=== PATIENT | female | born 1985 | race Caucasian/White ===

== ENCOUNTER 2020-12-14 16:44 | Emergency (ER) | payer BC, OTHER ==
[~2020-12-14] VITALS: Ht 162.6 cm; Wt 62.1 kg
[~2020-12-14 16:44] MED LIST: ANAPROX DS550 MG PO; BENTYL10 MG PO; BLEPH-105 ML OS; CYCLOBENZAPRINE10 MG PO; NITROFURANTOIN100 MG PO; PROMETHAZINE12.5 M1 PO; TEARS PURE DROP15 ML OS; TYLENOL WITH C1 EACH PO; ZOFRAN ODT4 MG SL
--- OUTSIDE RECORDS SUMMARY | 2020-12-14 16:46 | XMS ---
PreManage Notification: KIRAN ROSADO Security Business Development Events No recent Security Events currently on file CRITERIA MET - [facility] CARE PROVIDERS Negrito Caban DO [facility] Current PHONE: Unknown Tania has no Care Guidelines for this patient. EАнна VISIT COUNT (12 MO.) 1 ANA LAURA Santamaria TOTAL 1 NOTE: Visits indicate total known visits. ED/UCC VISIT TRACKING (12 MO.) 12/14/2020 16:44 ANA LAURA [facility] [place] TYPE: Emergency COMPLAINT: - CHEST PAIN,BACK PAIN,ABD PAIN INPATIENT VISIT TRACKING (12 MO.) No inpatient visits to display in this time frame [email or web address]
[2020-12-14] MEDS ORDERED: MODAFINIL100 MG PO (17:10)
--- NOTE | 2020-12-14 21:40 | EKG ---
[facility] [address] [place], [place] [address] Signed Normal sinus rhythm Normal ECG No previous ECGs available Confirmed by MARY VIDAL DO ([id number]) on 12/14/2020 9:40:49 PM Electronically Signed By: MARY VIDAL DO 12/14/200 PATIENT NAME: KIRAN ROSADO Electrocardiogram DATE OF : 89 PHYSICIAN: MARY VIDAL DO REPORT #: [id number] REPORT IS CONFIDENTIAL AND NOT TO BE RELEASED WITHOUT AUTHORIZATION
== END 2020-12-14 18:37 | disposition home or self-care (01) ==
LOC: ED 16:44
DX: R10.10 Upper abdominal pain, unspecified (principal); Z91.018 Allergy to other foods; Z88.6 Allergy status to analgesic agent; Z88.8 Allergy status to other drugs, medicaments and biological substances; Z79.899 Other long term (current) drug therapy
CPT/HCPCS: 71045; 80053; 81001; 83690; 83735; 84484; 84703; 85025; 93005; 93010; 99285-25

== ENCOUNTER 2022-09-13 11:20 | Observation (INO) | payer BC, OTHER ==
[~2022-09-13] VITALS: Ht 162.6 cm; Wt 63.8 kg
--- OUTSIDE RECORDS SUMMARY | ~2022-09-13 | XMS | Continuity of Care Document ---
Demographics + + + | Address | [address] | | | [place] [address] | + + + | Preferred Language | Unknown | + + + | Marital Status | Never | + + + | Hinduism Affiliation | Unknown | + + + | Race | White | + + + | Ethnic Group | Unknown | + + + Author + + + | Author | [facility] | + + + | Organization | [facility] | + + + | Address | [address] | | | [place] [address] | + + + | Phone | | + + + Care Team Providers + + + + | Care Vp Ancillary Name | Role | Phone | + + + + Unavailable | Unavailable | + + + + Unavailable | Unavailable | + + + + Allergies and Intolerances + + + + + | date | description | facility | type | + + + + + | (no date) | Compoz | [facility] | (unknown) | | | | [facility] | | + + + + + | (no date) | [facility]-D[facility] Allergy | [facility] | (unknown) | | | | [facility] | | + + + + + | (no date) | Benadryl 25 MG | [facility] | (unknown) | | | Oral Tablet | [facility] | | + + + + + | (no date) | diphenhydramine | [facility] | (unknown) | | | HCl | | | + + + + + | (no date) | aspirin | [facility] | (unknown) | + + + + + | (no date) | coconut oil | [facility] | (unknown) | + + + + + Encounters No information. Functional Status No information. Immunizations No information. Medications + + + + | date | description | facility | + + + + | 2018-10-22 00:00 | Fluticasone Propionate | [facility] | | | 50MCG/ACT Nasal Suspension | | + + + + | 2020-04-18 00:00 | triamcinolone acetonide 1 | [facility] | | | MG/ML Topical Cream | | + + + + | 2021-03-20 00:00 | triamcinolone acetonide 1 | [facility] | | | MG/ML Topical Cream | | + + + + | 2020-02-14 00:00 | mupirocin 0.02 MG/MG | [facility] | | | Topical Ointment | | + + + + | 2021-12-06 00:00 | methylphenidate | [facility] | | | hydrochloride 5 MG Oral | | | | Tablet | | + + + + | 2019-01-21 00:00 | menthol 0.037 MG/MG | [facility] | | | Topical Gel [Max-Freeze] | | + + + + | 2021-12-06 00:00 | Methylphenidate HCl 5 MG | [facility] | | | Oral Tablet | | + + + + | 2019-10-04 00:00 | meloxicam 15 MG Oral | [facility] | | | Tablet | | + + + + | 2020-04-18 00:00 | meloxicam 15 MG Oral | [facility] | | | Tablet | | + + + + | 2019-01-21 00:00 | Zims Max-Freeze 3.7% | [facility] | | | External Gel | | + + + + | 2022-08-07 00:00 | predniSONE 20 MG Oral | [facility] | | | Tablet | | + + + + | 2018-10-22 00:00 | fluticasone propionate | [facility] | | | 0.05 MG/ACTUAT Metered Dose | | | | Nasal [place] | | + + + + | 2019-10-04 00:00 | acetaminophen 325 MG Oral | [facility] | | | Tablet [Tylenol] | | + + + + | 2020-04-18 00:00 | Triamcinolone Acetonide | [facility] | | | 0.1% External Cream | | + + + + | 2021-03-20 00:00 | Triamcinolone Acetonide | [facility] | | | 0.1% External Cream | | + + + + | 2019-10-04 00:00 | Tylenol 325 MG Oral Tablet | [facility] | | | | | + + + + | 2021-03-20 00:00 | Bactrim DS 800-160 MG Oral | [facility] | | | Tablet | | + + + + | 2020-11-07 00:00 | modafinil 100 MG Oral | [facility] | | | Tablet | | + + + + | 2021-11-14 00:00 | modafinil 100 MG Oral | [facility] | | | Tablet | | + + + + | 2020-02-14 00:00 | Mupirocin 2% External | [facility] | | | Ointment | | + + + + | 2021-01-16 00:00 | azithromycin 250 MG Oral | [facility] | | | Tablet | | + + + + | 2021-12-04 00:00 | azithromycin 250 MG Oral | [facility] | | | Tablet | | + + + + | 2022-03-07 00:00 | Sucralfate 1 GM Oral | [facility] | | | Tablet | | + + + + | 2020-06-04 00:00 | ferrous sulfate 325 MG | [facility] | | | Oral Tablet | | + + + + | 2022-08-07 00:00 | prednisone 20 MG Oral | [facility] | | | Tablet | | + + + + | 2022-03-07 00:00 | pantoprazole 40 MG Delayed | [facility] | | | Release Oral Tablet | | + + + + | 2022-03-07 00:00 | sucralfate 1000 MG Oral | [facility] | | | Tablet | | + + + + | 2019-10-04 00:00 | Meloxicam 15 MG Oral | [facility] | | | Tablet | | + + + + | 2020-04-18 00:00 | Meloxicam 15 MG Oral | [facility] | | | Tablet | | + + + + | 2021-01-16 00:00 | Azithromycin 250 MG Oral | [facility] | | | Tablet | | + + + + | 2021-12-04 00:00 | Azithromycin 250 MG Oral | [facility] | | | Tablet | | + + + + | 2022-01-16 00:00 | amoxicillin 875 MG / | [facility] | | | clavulanate 125 MG Oral | | | | Tablet | | + + + + | 2022-08-07 00:00 | amoxicillin 875 MG / | [facility] | | | clavulanate 125 MG Oral | | | | Tablet | | + + + + | 2017-01-12 00:00 | Zofran ODT 4MG Oral Tablet | [facility] | | | Disintegrating | | + + + + | 2020-11-07 00:00 | Modafinil 100 MG Oral | [facility] | | | Tablet | | + + + + | 2021-11-14 00:00 | Modafinil 100 MG Oral | [facility] | | | Tablet | | + + + + | 2020-05-31 00:00 | duloxetine 30 MG Delayed | [facility] | | | Release Oral Capsule | | | | [Cymbalta] | | + + + + | 2022-03-07 00:00 | Pantoprazole Sodium 40 MG | [facility] | | | Oral Tablet Delayed Release | | | | | | + + + + | 2019-01-05 00:00 | Jackson 5-325 MG Oral Tablet | [facility] | | | | | + + + + | 2022-01-16 00:00 | Amoxicillin-Pot | [facility] | | | Clavulanate 875-125 MG Oral | | | | Tablet | | + + + + | 2022-08-07 00:00 | Amoxicillin-Pot | [facility] | | | Clavulanate 875-125 MG Oral | | | | Tablet | | + + + + | 2022-03-07 00:00 | HYDROcodone-Acetaminophen | [facility] | | | 5-325 MG Oral Tablet | | + + + + | 2019-01-05 00:00 | Cyclobenzaprine HCl 5 MG | [facility] | | | Oral Tablet | | + + + + | 2019-01-05 00:00 | cyclobenzaprine | [facility] | | | hydrochloride 5 MG Oral | | | | Tablet | | + + + + | 2020-06-04 00:00 | Ferrous Sulfate 325 (65 | [facility] | | | Fe) MG Oral Tablet | | + + + + | 2021-03-20 00:00 | sulfamethoxazole 800 MG / | [facility] | | | trimethoprim 160 MG Oral | | | | Tablet [Bactrim] | | + + + + | 2022-03-07 00:00 | acetaminophen 325 MG / | [facility] | | | hydrocodone bitartrate 5 MG | | | | Oral Tablet | | + + + + | 2019-01-05 00:00 | acetaminophen 325 MG / | [facility] | | | hydrocodone bitartrate 5 MG | | | | Oral Tablet [Jackson] | | + + + + | 2017-01-12 00:00 | ondansetron 4 MG | [facility] | | | Disintegrating Oral Tablet | | | | [Zofran] | | + + + + | 2020-05-31 00:00 | Cymbalta 30 MG Oral | [facility] | | | Capsule Delayed Release | | | | Particles | | + + + + Problems No information. Procedures + + + + | date | description | facility | + + + + | 2022-01-16 00:00 | Controlling Blood | [facility] | | | Pressure; Most recent | | | | Systolic <130mm Hg | | + + + + | 2022-01-16 00:00 | Controlling BP; Most | [facility] | | | recent Diastolic BP < 80mm | | | | Hg | | + + + + Results/Labs +--------+--------+ + +---------+--------+ + | test | date | author | facility | value | unit | | | | | | | | | interpreta | | | | | | | | tion | +--------+--------+ + +---------+--------+ + + + | Result panel 1 | + + + + + + +---------+ + + | (unknown) | (no date) | (unknown) | [facility] | (no | (units | (unknown) | | | | | [facility] | value) | unknown) | | | | | | [facility] | | | | | | [facility] | | | | + + + + +---------+ + + + + | Result panel 2 | + + + + + + +---------+ + + | (unknown) | (no date) | (unknown) | [facility] | (no | (units | (unknown) | | | | | [facility] | value) | unknown) | | | | | | [facility] | | | | | | | | [facility] | | | | + + + + +---------+ + + + + | Result panel 3 | + + + + + + +---------+ + + | (unknown) | (no date) | (unknown) | [facility] | (no | (units | (unknown) | | | | | [facility] | value) | unknown) | | | | | | [facility] | | | | | | | | [facility] | | | | + + + + +---------+ + + + + | Result panel 4 | + + + + + + +---------+ + + | (unknown) | (no date) | (unknown) | [facility] | (no | (units | (unknown) | | | | | [facility] | value) | unknown) | | | | | | [facility] | | | | | | | | [facility] | | | | + + + + +---------+ + + + + | Result panel 5 | + + + + + + +---------+ + + | (unknown) | (no date) | (unknown) | [facility] | (no | (units | (unknown) | | | | | [facility] | value) | unknown) | | | | | | [facility] | | | | | | | | [facility] | | | | + + + + +---------+ + + + + | Result panel 6 | + + + + + + +---------+ + + | (unknown) | (no date) | (unknown) | [facility] | (no | (units | (unknown) | | | | | [facility] | value) | unknown) | | | | | | [facility] | | | | | | | | [facility] | | | | + + + + +---------+ + + + + | Result panel 7 | + + + + + + +---------+ + + | (unknown) | (no date) | (unknown) | [facility] | (no | (units | (unknown) | | | | | [facility] | value) | unknown) | | | | | | [facility] | | | | | | | | [facility] | | | | + + + + +---------+ + + + + | Result panel 8 | + + + + + + +---------+ + + | (unknown) | (no date) | (unknown) | [facility] | (no | (units | (unknown) | | | | | [facility] | value) | unknown) | | | | | | [facility] | | | | | | | | [facility] | | | | + + + + +---------+ + + + + | Result panel 9 | + + + + + + +---------+ + + | (unknown) | (no date) | (unknown) | [facility] | (no | (units | (unknown) | | | | | [facility] | value) | unknown) | | | | | | [facility] | | | | | | | | [facility] | | | | + + + + +---------+ + + + + | Result panel 10 | + + + + + + +---------+ + + | (unknown) | (no date) | (unknown) | [facility] | (no | (units | (unknown) | | | | | [facility] | value) | unknown) | | | | | | [facility] | | | | | | | | [facility] | | | | + + + + +---------+ + + + + | Result panel 11 | + + + + + + +---------+ + + | (unknown) | (no date) | (unknown) | [facility] | (no | (units | (unknown) | | | | | [facility] | value) | unknown) | | | | | | [facility], | | | | | | | | [facility] | | | | + + + + +---------+ + + + + | Result panel 12 | + + + + + + +---------+ + + | (unknown) | (no date) | (unknown) | [facility] | (no | (units | (unknown) | | | | | [facility] | value) | unknown) | | | | | | [facility], | | | | | | | | [facility] | | | | + + + + +---------+ + + + + | Result panel 13 | + + + + + + +---------+ + + | (unknown) | (no date) | (unknown) | [facility] | (no | (units | (unknown) | | | | | [facility] | value) | unknown) | | | | | | [facility], | | | | | | | | [facility] | | | | + + + + +---------+ + + + + | Result panel 14 | + + + + + + +---------+ + + | (unknown) | (no date) | (unknown) | [facility] | (no | (units | (unknown) | | | | | [facility] | value) | unknown) | | | | | | [facility], | | | | | | | | [facility] | | | | + + + + +---------+ + + + + | Result panel 15 | + + + + + + +---------+ + + | (unknown) | (no date) | (unknown) | [facility] | (no | (units | (unknown) | | | | | [facility] | value) | unknown) | | | | | | [facility], | | | | | | | | [facility] | | | | + + + + +---------+ + + + + | Result panel 16 | + + + + + + +---------+ + + | (unknown) | (no date) | (unknown) | [facility] | (no | (units | (unknown) | | | | | [facility] | value) | unknown) | | | | | | [facility], | | | | | | | | [facility] | | | | + + + + +---------+ + + + + | Result panel 17 | + + + + + + +---------+ + + | (unknown) | (no date) | (unknown) | [facility] | (no | (units | (unknown) | | | | | [facility] | value) | unknown) | | | | | | [facility], | | | | | | | | [facility] | | | | + + + + +---------+ + + + + | Result panel 18 | + + + + + + +---------+ + + | (unknown) | (no date) | (unknown) | [facility] | (no | (units | (unknown) | | | | | [facility] | value) | unknown) | | | | | | [facility], | | | | | | | | [facility] | | | | + + + + +---------+ + + + + | Result panel 19 | + + + + + + +---------+ + + | (unknown) | (no date) | (unknown) | [facility] | (no | (units | (unknown) | | | | | [facility] | value) | unknown) | | | | | | [facility], | | | | | | | | [facility] | | | | + + + + +---------+ + + + + | Result panel 20 | + + + + + + +---------+ + + | (unknown) | (no date) | (unknown) | [facility] | (no | (units | (unknown) | | | | | [facility] | value) | unknown) | | | | | | [facility], | | | | | | | | [facility] | | | | + + + + +---------+ + + + + | Result panel 21 | + + + + + + +---------+ + + | (unknown) | (no date) | (unknown) | [facility] | (no | (units | (unknown) | | | | | [facility] | value) | unknown) | | | | | | [facility], | | | | | | | | [facility] | | | | + + + + +---------+ + + + + | Result panel 22 | + + + + + + +---------+ + + | (unknown) | (no date) | (unknown) | [facility] | (no | (units | (unknown) | | | | | [facility] | value) | unknown) | | | | | | [facility], | | | | | | | | [facility] | | | | + + + + +---------+ + + + + | Result panel 23 | + + + + + + +---------+ + + | (unknown) | (no date) | (unknown) | [facility] | (no | (units | (unknown) | | | | | [facility] | value) | unknown) | | | | | | [facility], | | | | | | | | [facility] | | | | + + + + +---------+ + + + + | Result panel 24 | + + + + + + +---------+ + + | (unknown) | (no date) | (unknown) | [facility] | (no | (units | (unknown) | | | | | [facility] | value) | unknown) | | | | | | [facility], | | | | | | | | [facility] | | | | + + + + +---------+ + + + + | Result panel 25 | + + + + + + +---------+ + + | (unknown) | (no date) | (unknown) | [facility] | (no | (units | (unknown) | | | | | [facility] | value) | unknown) | | | | | | [facility], | | | | | | | | [facility] | | | | + + + + +---------+ + + + + | Result panel 26 | + + + + + + +---------+ + + | (unknown) | (no date) | (unknown) | [facility] | (no | (units | (unknown) | | | | | [facility] | value) | unknown) | | | | | | [facility], | | | | | | | | [facility] | | | | + + + + +---------+ + + + + | Result panel 27 | + + + + + + +---------+ + + | (unknown) | (no date) | (unknown) | [facility] | (no | (units | (unknown) | | | | | [facility] | value) | unknown) | | | | | | [facility], | | | | | | | | [facility] | | | | + + + + +---------+ + + + + | Result panel 28 | + + + + + + +---------+ + + | (unknown) | (no date) | (unknown) | [facility] | (no | (units | (unknown) | | | | | [facility] | value) | unknown) | | | | | | [facility], | | | | | | | | [facility] | | | | + + + + +---------+ + + + + | Result panel 29 | + + + + + + +---------+ + + | (unknown) | (no date) | (unknown) | [facility] | (no | (units | (unknown) | | | | | [facility] | value) | unknown) | | | | | | [facility], | | | | | | | | [facility] | | | | + + + + +---------+ + + + + | Result panel 30 | + + + + + + +---------+ + + | (unknown) | (no date) | (unknown) | [facility] | (no | (units | (unknown) | | | | | [facility] | value) | unknown) | | | | | | [facility], | | | | | | | | [facility] | | | | + + + + +---------+ + + + + | Result panel 31 | + + + + + + +---------+ + + | (unknown) | (no date) | (unknown) | [facility] | (no | (units | (unknown) | | | | | [facility] | value) | unknown) | | | | | | [facility], | | | | | | | | [facility] | | | | + + + + +---------+ + + + + | Result panel 32 | + + + + + + +---------+ + + | (unknown) | (no date) | (unknown) | [facility] | (no | (units | (unknown) | | | | | [facility] | value) | unknown) | | | | | | [facility], | | | | | | | | [facility] | | | | + + + + +---------+ + + + + | Result panel 33 | + + + + + + +---------+ + + | (unknown) | (no date) | (unknown) | [facility] | (no | (units | (unknown) | | | | | [facility] | value) | unknown) | | | | | | [facility], | | | | | | | | [facility] | | | | + + + + +---------+ + + + + | Result panel 34 | + + + + + + +---------+ + + | (unknown) | (no date) | (unknown) | [facility] | (no | (units | (unknown) | | | | | [facility] | value) | unknown) | | | | | | [facility], | | | | | | | | [facility] | | | | + + + + +---------+ + + + + | Result panel 35 | + + + + + + +---------+ + + | (unknown) | (no date) | (unknown) | [facility] | (no | (units | (unknown) | | | | | [facility] | value) | unknown) | | | | | | [facility], | | | | | | | | [facility] | | | | + + + + +---------+ + + + + | Result panel 36 | + + + + + + +---------+ + + | (unknown) | (no date) | (unknown) | [facility] | (no | (units | (unknown) | | | | | [facility] | value) | unknown) | | | | | | [facility], | | | | | | | | [facility] | | | | + + + + +---------+ + + + + | Result panel 37 | + + + + + + +---------+ + + | (unknown) | (no date) | (unknown) | [facility] | (no | (units | (unknown) | | | | | [facility] | value) | unknown) | | | | | | [facility], | | | | | | | | [facility] | | | | + + + + +---------+ + + + + | Result panel 38 | + + + + + + +---------+ + + | (unknown) | (no date) | (unknown) | [facility] | (no | (units | (unknown) | | | | | [facility] | value) | unknown) | | | | | | [facility], | | | | | | | | [facility] | | | | + + + + +---------+ + + + + | Result panel 39 | + + + + + + +---------+ + + | (unknown) | (no date) | (unknown) | [facility] | (no | (units | (unknown) | | | | | [facility] | value) | unknown) | | | | | | [facility], | | | | | | | | [facility] | | | | + + + + +---------+ + + + + | Result panel 40 | + + + + + + +---------+ + + | (unknown) | (no date) | (unknown) | [facility] | (no | (units | (unknown) | | | | | [facility] | value) | unknown) | | | | | | [facility], | | | | | | | | [facility] | | | | + + + + +---------+ + + + + | Result panel 41 | + + + + + + +---------+ + + | (unknown) | (no date) | (unknown) | [facility] | (no | (units | (unknown) | | | | | [facility] | value) | unknown) | | | | | | [facility], | | | | | | | | [facility] | | | | + + + + +---------+ + + + + | Result panel 42 | + + + + + + +---------+ + + | (unknown) | (no date) | (unknown) | [facility] | (no | (units | (unknown) | | | | | [facility] | value) | unknown) | | | | | | [facility], | | | | | | | | [facility] | | | | + + + + +---------+ + + + + | Result panel 43 | + + + + + + +---------+ + + | (unknown) | (no date) | (unknown) | [facility] | (no | (units | (unknown) | | | | | [facility] | value) | unknown) | | | | | | [facility], | | | | | | | | [facility] | | | | + + + + +---------+ + + + + | Result panel 44 | + + + + + + +---------+ + + | (unknown) | (no date) | (unknown) | [facility] | (no | (units | (unknown) | | | | | [facility] | value) | unknown) | | | | | | [facility], | | | | | | | | [facility] | | | | + + + + +---------+ + + + + | Result panel 45 | + + + + + + +---------+ + + | (unknown) | (no date) | (unknown) | [facility] | (no | (units | (unknown) | | | | | [facility] | value) | unknown) | | | | | | [facility], | | | | | | | | [facility] | | | | + + + + +---------+ + + + + | Result panel 46 | + + + + + + +---------+ + + | (unknown) | (no date) | (unknown) | [facility] | (no | (units | (unknown) | | | | | [facility] | value) | unknown) | | | | | | [facility], | | | | | | | | [facility] | | | | + + + + +---------+ + + + + | Result panel 47 | + + + + + + +---------+ + + | (unknown) | (no date) | (unknown) | [facility] | (no | (units | (unknown) | | | | | [facility] | value) | unknown) | | | | | | [facility], | | | | | | | | [facility] | | | | + + + + +---------+ + + + + | Result panel 48 | + + + + + + +---------+ + + | (unknown) | (no date) | (unknown) | [facility] | (no | (units | (unknown) | | | | | [facility] | value) | unknown) | | | | | | [facility], | | | | | | | | [facility] | | | | + + + + +---------+ + + + + | Result panel 49 | + + + + + + +---------+ + + | (unknown) | (no date) | (unknown) | [facility] | (no | (units | (unknown) | | | | | [facility] | value) | unknown) | | | | | | [facility], | | | | | | | | [facility] | | | | + + + + +---------+ + + + + | Result panel 50 | + + + + + + +---------+ + + | (unknown) | (no date) | (unknown) | [facility] | (no | (units | (unknown) | | | | | [facility] | value) | unknown) | | | | | | [facility], | | | | | | | | [facility] | | | | + + + + +---------+ + + + + | Result panel 51 | + + + + + + +---------+ + + | (unknown) | (no date) | (unknown) | [facility] | (no | (units | (unknown) | | | | | [facility] | value) | unknown) | | | | | | [facility], | | | | | | | | [facility] | | | | + + + + +---------+ + + + + | Result panel 52 | + + + + + + +---------+ + + | (unknown) | (no date) | (unknown) | [facility] | (no | (units | (unknown) | | | | | [facility] | value) | unknown) | | | | | | GROUP, | | | | | | | | [facility] | | | | + + + + +---------+ + + + + | Result panel 53 | + + + + + + +---------+ + + | (unknown) | (no date) | (unknown) | [facility] | (no | (units | (unknown) | | | | | [facility] | value) | unknown) | | | | | | GROUP, | | | | | | | | [facility] | | | | + + + + +---------+ + + + + | Result panel 54 | + + + + + + +---------+ + + | (unknown) | (no date) | (unknown) | [facility] | (no | (units | (unknown) | | | | | [facility] | value) | unknown) | | | | | | GROUP, | | | | | | | | [facility] | | | | + + + + +---------+ + + + + | Result panel 55 | + + + + + + +---------+ + + | (unknown) | (no date) | (unknown) | [facility] | (no | (units | (unknown) | | | | | [facility] | value) | unknown) | | | | | | GROUP, | | | | | | | | [facility] | | | | + + + + +---------+ + + + + | Result panel 56 | + + + + + + +---------+ + + | (unknown) | (no date) | (unknown) | [facility] | (no | (units | (unknown) | | | | | [facility] | value) | unknown) | | | | | | GROUP, | | | | | | | | [facility] | | | | + + + + +---------+ + + + + | Result panel 57 | + + + + + + +---------+ + + | (unknown) | (no date) | (unknown) | [facility] | (no | (units | (unknown) | | | | | MEDICAL | value) | unknown) | | | | | | [facility], | | | | | | | | [facility] | | | | + + + + +---------+ + + + + | Result panel 58 | + + + + + + +---------+ + + | (unknown) | (no date) | (unknown) | [facility] | (no | (units | (unknown) | | | | | [facility] | value) | unknown) | | | | | | [facility], | | | | | | | | [facility] | | | | + + + + +---------+ + + + + | Result panel 59 | + + + + + + +---------+ + + | (unknown) | (no date) | (unknown) | [facility] | (no | (units | (unknown) | | | | | [facility] | value) | unknown) | | | | | | [facility], | | | | | | | | [facility] | | | | + + + + +---------+ + + + + | Result panel 60 | + + + + + + +---------+ + + | (unknown) | (no date) | (unknown) | [facility] | (no | (units | (unknown) | | | | | [facility] | value) | unknown) | | | | | | [facility], | | | | | | | | [facility] | | | | + + + + +---------+ + + + + | Result panel 61 | + + + + + + +---------+ + + | (unknown) | (no date) | (unknown) | [facility] | (no | (units | (unknown) | | | | | [facility] | value) | unknown) | | | | | | [facility], | | | | | | | | [facility] | | | | + + + + +---------+ + + + + | Result panel 62 | + + + + + + +---------+ + + | (unknown) | (no date) | (unknown) | [facility] | (no | (units | (unknown) | | | | | [facility] | value) | unknown) | | | | | | [facility], | | | | | | | | [facility] | | | | + + + + +---------+ + + + + | Result panel 63 | + + + + + + +---------+ + + | (unknown) | (no date) | (unknown) | [facility] | (no | (units | (unknown) | | | | | [facility] | value) | unknown) | | | | | | [facility], | | | | | | | | [facility] | | | | + + + + +---------+ + + + + | Result panel 64 | + + + + + + +---------+ + + | (unknown) | (no date) | (unknown) | [facility] | (no | (units | (unknown) | | | | | [facility] | value) | unknown) | | | | | | [facility], | | | | | | | | [facility] | | | | + + + + +---------+ + + + + | Result panel 65 | + + + + + + +---------+ + + | (unknown) | (no date) | (unknown) | [facility] | (no | (units | (unknown) | | | | | [facility] | value) | unknown) | | | | | | [facility], | | | | | | | | [facility] | | | | + + + + +---------+ + + + + | Result panel 66 | + + + + + + +---------+ + + | (unknown) | (no date) | (unknown) | [facility] | (no | (units | (unknown) | | | | | [facility] | value) | unknown) | | | | | | [facility], | | | | | | | | [facility] | | | | + + + + +---------+ + + + + | Result panel 67 | + + + + + + +---------+ + + | (unknown) | (no date) | (unknown) | [facility] | (no | (units | (unknown) | | | | | [facility] | value) | unknown) | | | | | | [facility], | | | | | | | | [facility] | | | | + + + + +---------+ + + + + | Result panel 68 | + + + + + + +---------+ + + | (unknown) | (no date) | (unknown) | [facility] | (no | (units | (unknown) | | | | | [facility] | value) | unknown) | | | | | | [facility], | | | | | | | | [facility] | | | | + + + + +---------+ + + + + | Result panel 69 | + + + + + + +---------+ + + | (unknown) | (no date) | (unknown) | [facility] | (no | (units | (unknown) | | | | | [facility] | value) | unknown) | | | | | | [facility], | | | | | | | | [facility] | | | | + + + + +---------+ + + + + | Result panel 70 | + + + + + + +---------+ + + | (unknown) | (no date) | (unknown) | [facility] | (no | (units | (unknown) | | | | | MEDICAL | value) | unknown) | | | | | | [facility], | | | | | | | | [facility] | | | | + + + + +---------+ + + + + | Result panel 71 | + + + + + + +---------+ + + | (unknown) | (no date) | (unknown) | [facility] | (no | (units | (unknown) | | | | | MEDICAL | value) | unknown) | | | | | | [facility], | | | | | | | | [facility] | | | | + + + + +---------+ + + + + | Result panel 72 | + + + + + + +---------+ + + | (unknown) | (no date) | (unknown) | [facility] | (no | (units | (unknown) | | | | | MEDICAL | value) | unknown) | | | | | | [facility], | | | | | | | | [facility] | | | | + + + + +---------+ + + + + | Result panel 73 | + + + + + + +---------+ + + | (unknown) | (no date) | (unknown) | [facility] | (no | (units | (unknown) | | | | | MEDICAL | value) | unknown) | | | | | | [facility], | | | | | | | | [facility] | | | | + + + + +---------+ + + + + | Result panel 74 | + + + + + + +---------+ + + | (unknown) | (no date) | (unknown) | [facility] | (no | (units | (unknown) | | | | | MEDICAL | value) | unknown) | | | | | | [facility] | | | | | | | | [facility] | | | | + + + + +---------+ + + + + | Result panel 75 | + + + + + + +---------+ + + | (unknown) | (no date) | (unknown) | [facility] | (no | (units | (unknown) | | | | | MEDICAL | value) | unknown) | | | | | | [facility], | | | | | | | | [facility] | | | | + + + + +---------+ + + + + | Result panel 76 | + + + + + + +---------+ + + | (unknown) | (no date) | (unknown) | [facility] | (no | (units | (unknown) | | | | | MEDICAL | value) | unknown) | | | | | | [facility], | | | | | | | | [facility] | | | | + + + + +---------+ + + + + | Result panel 77 | + + + + + + +---------+ + + | (unknown) | (no date) | (unknown) | [facility] | (no | (units | (unknown) | | | | | MEDICAL | value) | unknown) | | | | | | [facility], | | | | | | | | [facility] | | | | + + + + +---------+ + + + + | Result panel 78 | + + + + + + +---------+ + + | (unknown) | (no date) | (unknown) | [facility] | (no | (units | (unknown) | | | | | [facility] | value) | unknown) | | | | | | [facility], | | | | | | | | [facility] | | | | + + + + +---------+ + + + + | Result panel 79 | + + + + + + +---------+ + + | (unknown) | (no date) | (unknown) | [facility] | (no | (units | (unknown) | | | | | [facility] | value) | unknown) | | | | | | [facility], | | | | | | | | [facility] | | | | + + + + +---------+ + + + + | Result panel 80 | + + + + + + +---------+ + + | (unknown) | (no date) | (unknown) | [facility] | (no | (units | (unknown) | | | | | MEDICAL | value) | unknown) | | | | | | [facility], | | | | | | | | [facility] | | | | + + + + +---------+ + + + + | Result panel 81 | + + + + + + +---------+ + + | (unknown) | (no date) | (unknown) | [facility] | (no | (units | (unknown) | | | | | [facility] | value) | unknown) | | | | | | [facility], | | | | | | | | [facility] | | | | + + + + +---------+ + + + + | Result panel 82 | + + + + + + +---------+ + + | (unknown) | (no date) | (unknown) | [facility] | (no | (units | (unknown) | | | | | [facility] | value) | unknown) | | | | | | [facility], | | | | | | | | [facility] | | | | + + + + +---------+ + + + + | Result panel 83 | + + + + + + +---------+ + + | (unknown) | (no date) | (unknown) | [facility] | (no | (units | (unknown) | | | | | MEDICAL | value) | unknown) | | | | | | [facility], | | | | | | | | [facility] | | | | + + + + +---------+ + + + + | Result panel 84 | + + + + + + +---------+ + + | (unknown) | (no date) | (unknown) | [facility] | (no | (units | (unknown) | | | | | [facility]ICAL | value) | unknown) | | | | | | [facility], | | | | | | | | [facility] | | | | + + + + +---------+ + + + + | Result panel 85 | + + + + + + +---------+ + + | (unknown) | (no date) | (unknown) | [facility] | (no | (units | (unknown) | | | | | [facility] | value) | unknown) | | | | | | [facility], | | | | | | | | [facility] | | | | + + + + +---------+ + + + + | Result panel 86 | + + + + + + +---------+ + + | (unknown) | (no date) | (unknown) | [facility] | (no | (units | (unknown) | | | | | [facility] | value) | unknown) | | | | | | [facility], | | | | | | | | [facility] | | | | + + + + +---------+ + + + + | Result panel 87 | + + + + + + +---------+ + + | (unknown) | (no date) | (unknown) | [facility] | (no | (units | (unknown) | | | | | [facility] | value) | unknown) | | | | | | [facility], | | | | | | | | [facility] | | | | + + + + +---------+ + + + + | Result panel 88 | + + + + + + +---------+ + + | (unknown) | (no date) | (unknown) | [facility] | (no | (units | (unknown) | | | | | [facility] | value) | unknown) | | | | | | [facility], | | | | | | | | [facility] | | | | + + + + +---------+ + + + + | Result panel 89 | + + + + + + +---------+ + + | (unknown) | (no date) | (unknown) | [facility] | (no | (units | (unknown) | | | | | [facility] | value) | unknown) | | | | | | [facility], | | | | | | | | [facility] | | | | + + + + +---------+ + + + + | Result panel 90 | + + + + + + +---------+ + + | (unknown) | (no date) | (unknown) | [facility] | (no | (units | (unknown) | | | | | [facility] | value) | unknown) | | | | | | [facility], | | | | | | | | [facility] | | | | + + + + +---------+ + + + + | Result panel 91 | + + + + + + +---------+ + + | (unknown) | (no date) | (unknown) | [facility] | (no | (units | (unknown) | | | | | [facility] | value) | unknown) | | | | | | [facility], | | | | | | | | [facility] | | | | + + + + +---------+ + + + + | Result panel 92 | + + + + + + +---------+ + + | (unknown) | (no date) | (unknown) | [facility] | (no | (units | (unknown) | | | | | [facility] | value) | unknown) | | | | | | [facility], | | | | | | | | [facility] | | | | + + + + +---------+ + + + + | Result panel 93 | + + + + + + +---------+ + + | (unknown) | (no date) | (unknown) | [facility] | (no | (units | (unknown) | | | | | [facility] | value) | unknown) | | | | | | [facility], | | | | | | | | [facility] | | | | + + + + +---------+ + + + + | Result panel 94 | + + + + + + +---------+ + + | (unknown) | (no date) | (unknown) | [facility] | (no | (units | (unknown) | | | | | [facility] | value) | unknown) | | | | | | [facility], | | | | | | | | [facility] | | | | + + + + +---------+ + + + + | Result panel 95 | + + + + + + +---------+ + + | (unknown) | (no date) | (unknown) | [facility] | (no | (units | (unknown) | | | | | [facility] | value) | unknown) | | | | | | [facility], | | | | | | | | [facility] | | | | + + + + +---------+ + + + + | Result panel 96 | + + + + + + +---------+ + + | (unknown) | (no date) | (unknown) | [facility] | (no | (units | (unknown) | | | | | [facility] | value) | unknown) | | | | | | [facility], | | | | | | | | [facility] | | | | + + + + +---------+ + + + + | Result panel 97 | + + + + + + +---------+ + + | (unknown) | (no date) | (unknown) | [facility] | (no | (units | (unknown) | | | | | MED[facility] | value) | unknown) | | | | | | [facility], | | | | | | | | [facility] | | | | + + + + +---------+ + + + + | Result panel 98 | + + + + + + +---------+ + + | (unknown) | (no date) | (unknown) | [facility] | (no | (units | (unknown) | | | | | [facility] | value) | unknown) | | | | | | [facility] | | | | | | | | [facility] | | | | + + + + +---------+ + + Social History + + + + | date | description | facility | + + + + | 2016-12-04 00:00 | Never smoked tobacco | [facility] | | | (finding) | | + + + + Vital Signs + + +---------+ + | date | measurement | value | units | + + +---------+ + | 2019-10-04 00:00 | BMI | 20.6 | kg/m2 | + + +---------+ + | 2019-10-04 00:00 | BP_diastolic | 66 | mmHg | + + +---------+ + | 2019-10-04 00:00 | BP_systolic | 136 | mmHg | + + +---------+ + | 2019-10-04 00:00 | BSA | 1.61 | m2 | + + +---------+ + | 2019-10-04 00:00 | heart_rate | 1|1| | completed | + + +---------+ + | 2019-10-04 00:00 | heart_rate | 80 | /min | + + +---------+ + | 2019-10-04 00:00 | height_metric | 165.1 | cm | + + +---------+ + | 2019-10-04 00:00 | height_standard | 65 | in | + + +---------+ + | 2019-10-04 00:00 | respiration_rate | 16 | /min | + + +---------+ + | 2019-10-04 00:00 | weight_metric | 56.25 | kg | + + +---------+ + | 2019-10-04 00:00 | weight_standard | 124 | lb | + + +---------+ + | 2020-01-04 00:00 | BMI | 20.6 | kg/m2 | + + +---------+ + | 2020-01-04 00:00 | BP_diastolic | 58 | mmHg | + + +---------+ + | 2020-01-04 00:00 | BP_systolic | 106 | mmHg | + + +---------+ + | 2020-01-04 00:00 | BSA | 1.61 | m2 | + + +---------+ + | 2020-01-04 00:00 | heart_rate | 1|1| | completed | + + +---------+ + | 2020-01-04 00:00 | heart_rate | 72 | /min | + + +---------+ + | 2020-01-04 00:00 | height_metric | 165.1 | cm | + + +---------+ + | 2020-01-04 00:00 | height_standard | 65 | in | + + +---------+ + | 2020-01-04 00:00 | weight_metric | 56.06 | kg | + + +---------+ + | 2020-01-04 00:00 | weight_standard | 123.6 | lb | + + +---------+ + | 2020-04-18 00:00 | BMI | 20.6 | kg/m2 | + + +---------+ + | 2020-04-18 00:00 | BP_diastolic | 58 | mmHg | + + +---------+ + | 2020-04-18 00:00 | BP_systolic | 106 | mmHg | + + +---------+ + | 2020-04-18 00:00 | BSA | 1.61 | m2 | + + +---------+ + | 2020-04-18 00:00 | heart_rate | 1|1| | completed | + + +---------+ + | 2020-04-18 00:00 | heart_rate | 64 | /min | + + +---------+ + | 2020-04-18 00:00 | height_metric | 165.1 | cm | + + +---------+ + | 2020-04-18 00:00 | height_standard | 65 | in | + + +---------+ + | 2020-04-18 00:00 | respiration_rate | 16 | /min | + + +---------+ + | 2020-04-18 00:00 | weight_metric | 56.25 | kg | + + +---------+ + | 2020-04-18 00:00 | weight_standard | 124 | lb | + + +---------+ + | 2020-05-31 00:00 | BMI | 21.1 | kg/m2 | + + +---------+ + | 2020-05-31 00:00 | BP_diastolic | 54 | mmHg | + + +---------+ + | 2020-05-31 00:00 | BP_systolic | 86 | mmHg | + + +---------+ + | 2020-05-31 00:00 | BSA | 1.63 | m2 | + + +---------+ + | 2020-05-31 00:00 | heart_rate | 1|1| | completed | + + +---------+ + | 2020-05-31 00:00 | heart_rate | 88 | /min | + + +---------+ + | 2020-05-31 00:00 | height_metric | 165.1 | cm | + + +---------+ + | 2020-05-31 00:00 | height_standard | 65 | in | + + +---------+ + | 2020-05-31 00:00 | respiration_rate | 16 | /min | + + +---------+ + | 2020-05-31 00:00 | temperature_metric | 36.17 | C | | | | | | + + +---------+ + | 2020-05-31 00:00 | | 97.1 | F | | | temperature_standar | | | | | d | | | + + +---------+ + | 2020-05-31 00:00 | weight_metric | 57.61 | kg | + + +---------+ + | 2020-05-31 00:00 | weight_standard | 127 | lb | + + +---------+ + | 2020-11-07 00:00 | BMI | 19.6 | kg/m2 | + + +---------+ + | 2020-11-07 00:00 | BP_diastolic | 54 | mmHg | + + +---------+ + | 2020-11-07 00:00 | BP_systolic | 96 | mmHg | + + +---------+ + | 2020-11-07 00:00 | BSA | 1.58 | m2 | + + +---------+ + | 2020-11-07 00:00 | heart_rate | 1|1| | completed | + + +---------+ + | 2020-11-07 00:00 | heart_rate | 66 | /min | + + +---------+ + | 2020-11-07 00:00 | height_metric | 165.1 | cm | + + +---------+ + | 2020-11-07 00:00 | height_standard | 65 | in | + + +---------+ + | 2020-11-07 00:00 | temperature_metric | 36.28 | C | | | | | | + + +---------+ + | 2020-11-07 00:00 | | 97.3 | F | | | temperature_standar | | | | | d | | | + + +---------+ + | 2020-11-07 00:00 | weight_metric | 53.52 | kg | + + +---------+ + | 2020-11-07 00:00 | weight_standard | 118 | lb | + + +---------+ + | 2021-01-16 00:00 | heart_rate | 68 | /min | + + +---------+ + | 2021-01-16 00:00 | height_metric | 165.1 | cm | + + +---------+ + | 2021-01-16 00:00 | height_standard | 65 | in | + + +---------+ + | 2021-01-16 00:00 | o2_saturation | 99 | % | + + +---------+ + | 2021-01-16 00:00 | temperature_metric | 36.28 | C | | | | | | + + +---------+ + | 2021-01-16 00:00 | | 97.3 | F | | | temperature_standar | | | | | d | | | + + +---------+ + | 2021-02-21 00:00 | heart_rate | 82 | /min | + + +---------+ + | 2021-02-21 00:00 | height_metric | 165.1 | cm | + + +---------+ + | 2021-02-21 00:00 | height_standard | 65 | in | + + +---------+ + | 2021-02-21 00:00 | o2_saturation | 98 | % | + + +---------+ + | 2021-02-21 00:00 | temperature_metric | 36.28 | C | | | | | | + + +---------+ + | 2021-02-21 00:00 | | 97.3 | F | | | temperature_standar | | | | | d | | | + + +---------+ + | 2021-03-04 00:00 | heart_rate | 1|1| | completed | + + +---------+ + | 2021-03-04 00:00 | heart_rate | 79 | /min | + + +---------+ + | 2021-03-04 00:00 | height_metric | 165.1 | cm | + + +---------+ + | 2021-03-04 00:00 | height_standard | 65 | in | + + +---------+ + | 2021-03-04 00:00 | o2_saturation | 99 | % | + + +---------+ + | 2021-03-04 00:00 | temperature_metric | 36.22 | C | | | | | | + + +---------+ + | 2021-03-04 00:00 | | 97.2 | F | | | temperature_standar | | | | | d | | | + + +---------+ + | 2021-03-20 00:00 | BMI | 20.5 | kg/m2 | + + +---------+ + | 2021-03-20 00:00 | BP_diastolic | 60 | mmHg | + + +---------+ + | 2021-03-20 00:00 | BP_systolic | 102 | mmHg | + + +---------+ + | 2021-03-20 00:00 | BSA | 1.6 | m2 | + + +---------+ + | 2021-03-20 00:00 | BSA | 1.61 | m2 | + + +---------+ + | 2021-03-20 00:00 | heart_rate | 60 | /min | + + +---------+ + | 2021-03-20 00:00 | height_metric | 165.1 | cm | + + +---------+ + | 2021-03-20 00:00 | height_standard | 65 | in | + + +---------+ + | 2021-03-20 00:00 | o2_saturation | 99 | % | + + +---------+ + | 2021-03-20 00:00 | temperature_metric | 36.28 | C | | | | | | + + +---------+ + | 2021-03-20 00:00 | | 97.3 | F | | | temperature_standar | | | | | d | | | + + +---------+ + | 2021-03-20 00:00 | weight_metric | 55.88 | kg | + + +---------+ + | 2021-03-20 00:00 | weight_standard | 123.2 | lb | + + +---------+ + | 2021-06-26 00:00 | BMI | 23.3 | kg/m2 | + + +---------+ + | 2021-06-26 00:00 | BSA | 1.7 | m2 | + + +---------+ + | 2021-06-26 00:00 | BSA | 1.70 | m2 | + + +---------+ + | 2021-06-26 00:00 | heart_rate | 1|1| | completed | + + +---------+ + | 2021-06-26 00:00 | heart_rate | 82 | /min | + + +---------+ + | 2021-06-26 00:00 | height_metric | 165.1 | cm | + + +---------+ + | 2021-06-26 00:00 | height_standard | 65 | in | + + +---------+ + | 2021-06-26 00:00 | o2_saturation | 99 | % | + + +---------+ + | 2021-06-26 00:00 | temperature_metric | 36.61 | C | | | | | | + + +---------+ + | 2021-06-26 00:00 | | 97.9 | F | | | temperature_standar | | | | | d | | | + + +---------+ + | 2021-06-26 00:00 | weight_metric | 63.5 | kg | + + +---------+ + | 2021-06-26 00:00 | weight_standard | 140 | lb | + + +---------+ + | 2021-12-04 00:00 | BMI | 22.5 | kg/m2 | + + +---------+ + | 2021-12-04 00:00 | BSA | 1.67 | m2 | + + +---------+ + | 2021-12-04 00:00 | BSA | 1.7 | m2 | + + +---------+ + | 2021-12-04 00:00 | heart_rate | 1|1| | completed | + + +---------+ + | 2021-12-04 00:00 | heart_rate | 84 | /min | + + +---------+ + | 2021-12-04 00:00 | height_metric | 165.1 | cm | + + +---------+ + | 2021-12-04 00:00 | height_standard | 65 | in | + + +---------+ + | 2021-12-04 00:00 | o2_saturation | 99 | % | + + +---------+ + | 2021-12-04 00:00 | respiration_rate | 16 | /min | + + +---------+ + | 2021-12-04 00:00 | temperature_metric | 36.56 | C | | | | | | + + +---------+ + | 2021-12-04 00:00 | | 97.8 | F | | | temperature_standar | | | | | d | | | + + +---------+ + | 2021-12-04 00:00 | weight_metric | 61.23 | kg | + + +---------+ + | 2021-12-04 00:00 | weight_standard | 135 | lb | + + +---------+ + | 2022-01-16 00:00 | BMI | 22.3 | kg/m2 | + + +---------+ + | 2022-01-16 00:00 | BP_diastolic | 52 | mmHg | + + +---------+ + | 2022-01-16 00:00 | BP_systolic | 98 | mmHg | + + +---------+ + | 2022-01-16 00:00 | BSA | 1.67 | m2 | + + +---------+ + | 2022-01-16 00:00 | BSA | 1.7 | m2 | + + +---------+ + | 2022-01-16 00:00 | heart_rate | 82 | /min | + + +---------+ + | 2022-01-16 00:00 | height_metric | 165.1 | cm | + + +---------+ + | 2022-01-16 00:00 | height_standard | 65 | in | + + +---------+ + | 2022-01-16 00:00 | o2_saturation | 99 | % | + + +---------+ + | 2022-01-16 00:00 | temperature_metric | 36.28 | C | | | | | | + + +---------+ + | 2022-01-16 00:00 | | 97.3 | F | | | temperature_standar | | | | | d | | | + + +---------+ + | 2022-01-16 00:00 | weight_metric | 60.69 | kg | + + +---------+ + | 2022-01-16 00:00 | weight_standard | 133.8 | lb | + + +---------+ + | 2022-02-28 00:00 | BMI | 22.1 | 1 | + + +---------+ + | 2022-02-28 00:00 | BP_diastolic | 56 | mmHg | + + +---------+ + | 2022-02-28 00:00 | BP_systolic | 98 | mmHg | + + +---------+ + | 2022-02-28 00:00 | BSA | 1.7 | 1 | + + +---------+ + | 2022-02-28 00:00 | heart_rate | 87 | /min | + + +---------+ + | 2022-02-28 00:00 | height_metric | 165.1 | cm | + + +---------+ + | 2022-02-28 00:00 | height_standard | 65 | in | + + +---------+ + | 2022-02-28 00:00 | o2_saturation | 99 | % | + + +---------+ + | 2022-02-28 00:00 | temperature_metric | 36.39 | C | | | | | | + + +---------+ + | 2022-02-28 00:00 | | 97.5 | F | | | temperature_standar | | | | | d | | | + + +---------+ + | 2022-02-28 00:00 | weight_metric | 60.33 | kg | + + +---------+ + | 2022-02-28 00:00 | weight_standard | 133 | lb | + + +---------+ + | 2022-03-07 00:00 | BMI | 22.1 | 1 | + + +---------+ + | 2022-03-07 00:00 | BP_diastolic | 58 | mmHg | + + +---------+ + | 2022-03-07 00:00 | BP_systolic | 110 | mmHg | + + +---------+ + | 2022-03-07 00:00 | BSA | 1.7 | 1 | + + +---------+ + | 2022-03-07 00:00 | heart_rate | 1|1| | completed | + + +---------+ + | 2022-03-07 00:00 | heart_rate | 84 | /min | + + +---------+ + | 2022-03-07 00:00 | height_metric | 165.1 | cm | + + +---------+ + | 2022-03-07 00:00 | height_standard | 65 | in | + + +---------+ + | 2022-03-07 00:00 | o2_saturation | 98 | % | + + +---------+ + | 2022-03-07 00:00 | respiration_rate | 16 | /min | + + +---------+ + | 2022-03-07 00:00 | temperature_metric | 36.61 | C | | | | | | + + +---------+ + | 2022-03-07 00:00 | | 97.9 | F | | | temperature_standar | | | | | d | | | + + +---------+ + | 2022-03-07 00:00 | weight_metric | 60.33 | kg | + + +---------+ + | 2022-03-07 00:00 | weight_standard | 133 | lb | + + +---------+ + | 2022-08-07 00:00 | BMI | 22.5 | 1 | + + +---------+ + | 2022-08-07 00:00 | BP_diastolic | 60 | mmHg | + + +---------+ + | 2022-08-07 00:00 | BP_systolic | 104 | mmHg | + + +---------+ + | 2022-08-07 00:00 | BSA | 1.7 | 1 | + + +---------+ + | 2022-08-07 00:00 | heart_rate | 1|1| | completed | + + +---------+ + | 2022-08-07 00:00 | heart_rate | 75 | /min | + + +---------+ + | 2022-08-07 00:00 | height_metric | 165.1 | cm | + + +---------+ + | 2022-08-07 00:00 | height_standard | 65 | in | + + +---------+ + | 2022-08-07 00:00 | o2_saturation | 98 | % | + + +---------+ + | 2022-08-07 00:00 | respiration_rate | 16 | /min | + + +---------+ + | 2022-08-07 00:00 | temperature_metric | 36.5 | C | | | | | | + + +---------+ + | 2022-08-07 00:00 | | 97.7 | F | | | temperature_standar | | | | | d | | | + + +---------+ + | 2022-08-07 00:00 | weight_metric | 61.23 | kg | + + +---------+ + | 2022-08-07 00:00 | weight_standard | 135 | lb | + + +---------+ +"
[~2022-09-13 11:20] MED LIST changes: +MODAFINIL100 MG PO
--- OUTSIDE RECORDS SUMMARY | 2022-09-13 11:23 | XMS ---
PreManage Notification: KIRAN ROSADO Security Time Clock Repairer Events No recent Security Events currently on file CRITERIA MET - [facility] CARE PROVIDERS -Sergio- Dentist: Interactive Media Director [facility] PHONE: [phone] Negrito Caban DO [facility] Current PHONE: Unknown Tania has no Care Guidelines for this patient. Manuel VISIT COUNT (12 MO.) [address] [facility] TOTAL 4 NOTE: Visits indicate total known visits. ED/UCC VISIT TRACKING (12 MO.) 09/13/2022 11:20 ANA LAUR[facility] [place] TYPE: Emergency COMPLAINT: - LOW B/P, ABD/CHEST PAIN, POST SURGERY 02[facility]28[facility]2022 11[facility] DIAGNOSES: - Other specified conditions associated with female genital organs and menstrual cycle - PANCREATITIS 11/29/2021 11:19 [facility] [place] TYPE: Emergency DIAGNOSES: - COVID-19 - Hypotension, unspecified - Other symptoms and signs concerning food and fluid intake - COVID + UNABLE TO KEEP ANYTHING DOWN 11/26/2021 17:47 [facility] [place] TYPE: Emergency DIAGNOSES: - COVID-19 - CHILLS, DIZZINESS, CHEST PAIN INPATIENT VISIT TRACKING (12 MO.) No inpatient visits to display in this time frame [email or web address]
[2022-09-13 16:30] VITALS: BP 93/45
--- NOTE | 2022-09-13 19:35 | NUR ---
SHIFT REPORT RECEIVED FROM DAYSHIFT AMRIK DANIELS AT BEDSIDE, pt AWAKE AND RESTING IN BED. REPORTS NEED TO VOID, SBA TO BATHROOM AND BACK TO BED. SCD'S RESUMED AND WARM BLANKET AND APPLE JUICE PROVIDED. TEMP WNL, 98.3. CALL LIGHT IN REACH. IV SITE WNL, FLUIDS INFUSING DIRECTED.
[2022-09-13 21:26] VITALS: BP 97/42
--- NOTE | 2022-09-13 21:33 | NUR ---
IN ROOM TO COLLECT VS, BP LOW 81/38, MAP OF 49. pt REPOSITIONED IN BED AND RETOOK BP WITH RESULT OF 97/42, MAP OF 55. TEMP ALSO NOTED ELEVATED AT 100.1, EXCESS BLANKETS REMOVED AND COOL RAG APPLIED. SISTER RICHARD ON PHONE AND UPDATED. CALL MADE TO DR CRUZ AND TELEPHONE ORDER READ BACK FOR 1LITER BOLUS OF LR TO INFUSE OVER ONE HOUR AND X1 DOSE IV TYLENOL NOW FOR TEMP. ALSO RECEIVED ORDERS FOR 1,000 MG PO TYLENOL Q6HPRN FOR TEMP. ORDERS TO NOTIFY MD IF SBP LESS THAN 80, DBP LESS THAN 40, AND/OR SYMPTOMATIC. FIRST RESPONDER MADE AWARE AND TO PULL IV TYLENOL. CALL LIGHT IN REACH.ORDERS READ BACK TO CONFIRM. ALSO DISCUSSED TOTAL INPUT FOR pt SINCE ARRIVAL TO HOSPITAL PER EMAR.
--- NOTE | 2022-09-13 23:03 | NUR ---
DR CRUZ MADE AWARE OF PTS APPROX 275 EMESIS. ADDITIONAL TELEPHONE ORDERS FOR 2.5-5MG IV COMPAZINE RECEIVED, READ BACK TO VERIFY. pT REPORTS HER NAUSEA IS SLIGHTLY IMPROVED, WILL MONITOR. IN EMESIS SMALL AMOUNT OF WHAT APPEARS TO BE BLOOD NOTED IN EMESIS, MD AWARE.
--- NOTE | 2022-09-13 23:32 | NUR ---
IN ROOM TO RECHECK VS, BP REMAINS IN THE 90'S SYSTOLIC. RESULT OF 90/50, MAP OF 59. FEVER IMPROVED, NOW 98.8. pt APPEARS A LITTLE MORE RELAXED IN BED, CHECKER CASHIER MINDI UPDATED ON pt AND NOW IN ROOM TO ASSIST WITH PRN NAUSEA MEDICAITON. SISTER RICHARD UPDATED AND MADE AWARE ON POC, QUESTIONS ANSWERED. pt OKAY WITH THIS RN UPDATING SISTER AND ANSWERING QUESTIONS. pt DENIED NEED OF COMPAZAINE WHEN OFFERED.
--- NOTE | 2022-09-13 23:50 | NUR ---
ROUNDED AGAIN ON pt, pt REMAINS AWAKE AND RESTING IN BED. IV SITE WNL, FLUIDS CONTINUE TO INFUSE DIRECTED. pt DENIES NEEDS OR CONCERNS WHEN ASKED. CALL LIGHT IN REACH. WILL CONTINUE TO MONITOR.
--- NOTE | 2022-09-14 00:47 | NUR ---
pt RESTING IN BED WITH EYES CLOSED, ON RA. RR EVEN AND UNLABORED. NO DISTRESS NOTED. LIGHTS TURNED OFF TO PROMOTE REST. IV SITE WNL, FLUIDS CONTINUE TO INFUSE DIRECTED. CALL LIGHT IN REACH.
[2022-09-14 01:10] VITALS: BP 92/53
--- NOTE | 2022-09-14 01:35 | NUR ---
rounded on pt, pt resting in bed with eyes closed on ra. rr even and unlabored, vs recently collected by preeti dyer. vs remains wnl for md parameters. no distress noted, call light in reach. scheduled iv abx infusing as directed and new bag iv fluids also hung. iv pump cleared. call light in reach.
--- NOTE | 2022-09-14 03:10 | NUR ---
REPORT GIVEN TO AMRIK CALLOWAY, AMRIK CALLOWAY TO TAKE OVER pt CARE AT THIS TIME AND ACT PRIMARY RN.
--- NOTE | 2022-09-14 03:29 | NUR ---
REPORT RECEIVED FROM AMRIK ACUNA. THIS RN ASSUMING CARE OF PT. PT RESTING IN BED WITH EYES CLOSED. HEAD OF BED AT 30 DEGREES. RESPRAITIONS EVEN AND UNLABORED. BED RAILS UP. CALL LIGHT WITHIN REACH. PT ALLOWED TO REST.
--- NOTE | 2022-09-14 04:01 | NUR ---
MORNING ASSESSMENT DUE. PT CALL LIGHT ON. PT REQUESTS ASSISTANCE WITH IV POLE UP TO RESTROOM. STAND BY ASSIST UP TO RESTROOM. PT VOIDS 650ML WITHOUT ISSUE. STAND BYA SSIST BACK TO BED. PT REPORTS FEELIGN "REALLY COLD." PT SHAKING. WARM BLANKET PROVIDED AND SHAKING RESOLVES. TEMPERATURE ASSESSED, 97.6. PT DENIES PAIN AND NAUSEA. PT ALERT AND OREINTED TO ALL. LUNG SOUNDS CLEAR. HEART TONES REGULAR. ABDOMEN SOFT AND NON TENDER BUT MILDY DISTENDED. PT DENIES [place]. BOWEL TONES ACTIVE. PT DENIES ANY VAGINAL DISCHARGE OR BLEEDING. LAPAROSCOPIC ABDOMINAL SITES X4 WNL WITH EGES WELL APROXIMATED AND NO DRAINAGE PRESENT. PT RETURNES TO RESTING WITH EYES CLOSED ON RIGHT SIDE. NO ADDITIONAL REQUESTS OR COMPLAINTS. CALL LIGHT WIHTIN REACH. BED RAILS UP.
[2022-09-14 04:08] VITALS: BP 123/56
--- NOTE | 2022-09-14 05:30 | NUR ---
LAB TO BEDSIDE TO DRAW AM LABS. PT AWAKENS BRIEFLY. PT DENIES PAIN AND NAUSEA. REPORTS CHILLS ARE IMPROVING. PT DENIES ADDITIONAL REQUESTS OR COMPLAINTS. CALL LIGHT WITHIN REACH. BED RAILS UP.
--- NOTE | 2022-09-14 06:23 | NUR ---
HOURLY ROUNDING: PT RESTING WITH EYES CLOSED ON RIGHT SIDE. RESPIRATIONS EVEN AND UNLABORED. BED RAILS UP. CALL LIGHT WITHIN REACH. PT ALLOWED TO REST.
--- NOTE | 2022-09-14 07:00 | NUR ---
PTS MOTHER, AGUSTO, CALLED FOR UPDATE. UPDATED ON PT STATUS AND PLAN OF CARE. AGUSTO VERBALIZES UNDERSTANDING OF PLAN OF CARE. PT STATES HER QUESTIONS HAVE BEEN ANSWERED.
--- NOTE | 2022-09-14 07:10 | NUR ---
REPORT GIVEN TO AMRIK ARIAS, WHO IS ASSUMING CARE OF PT.
--- NOTE | 2022-09-14 07:23 | NUR ---
Recieved report from Leelee-AMRIK this morning. Patient resting at this time, allowed to sleep. Respirations unlabored. Call light in reach and bed rails up x2. All patient care needs met at this time.
--- NOTE | 2022-09-14 08:28 | NUR ---
SBA TO THE BATHROOM THIS MORNING. C/O 06/16 TO RIGHT ABDOMEN, STATES PASSING SOME GAS, LAST BM 09/12/22. C/O NAUSEA THIS MORNING, NO EMESIS. LAP SITES X4 WELL APPROXIMATED, NO SIGNS OF REDNESS/WARM/DRAINAGE. DENIES VAGINAL BLEEDING/DISCHARGE. PATIENT GIVEN MENU TO ORDER BREAKFAST. IV CEFTRIAXONE HUNG. WARM BLANKET GIVEN TO PATIENT. ALL PATIENT CARE NEEDS MET AT THIS TIME, PATIENT TALKING ON PHONE WITH FRIEND.
--- NOTE | 2022-09-14 09:07 | NUR ---
MEDICAITON DUE. GIVEN ORDERED. PT EATING BREAKFAST. REPORTS 1/10 PAIN IN LOWER ABDOMEN AND DENIES NEED FOR ADDITIONAL PAIN MEDICAITON. NO ADDTIONAL REQUESTS OR COMPLAINTS AT THIS TIME. CALL LIGHT WITHIN REACH. BED RAILS UP.
--- NOTE | 2022-09-14 09:50 | NUR ---
Patient is resting with eyes closed. Call light within reach, bed rails up x2. IV antibiotics still infusing. All patient care needs met at this time.
[2022-09-14 10:05] VITALS: BP 93/62
--- NOTE | 2022-09-14 10:45 | NUR ---
DR. CRUZ ROUNDED ON PATIENT, IF PRESSURES REMAIN STABLE THIS AFTERNOON MAY DECREASE IV FLUIDS TO 50ML/HR. TO CONTINUE ON IV ABX TILL TOMORROW, THEN MAY SWITCH TO PO AFTER HE ROUNDS. NO OTHER UPDATES/ORDERS. PATIENT RESTING IN BED, TALKING ON THE PHONE, SHE STATES SHE HAS NO QUESTIONS AFTER MD ROUNDED. IV ABX COMPLETED. PATIENT DENIES PAIN/NAUSEA AT THIS TIME. CALL LIGHT WITHIN REACH. BED RAILS UP X2. ALL PATIENT CARE NEEDS MET AT THIS TIME, NO OTHER REQUESTS.
--- NOTE | 2022-09-14 11:19 | NUR ---
PTS BLOOD PRESSURE MAINTAINING. IV FLUID RATE ADJUSTED BY SOFIYA, PTS PRIMARY RN WITH ASSISSTANCE FROM THIS RN. PT RESTING WITH EYES CLOSED. RESPRIATIONS EVEN AND UNLABORED. BED RAILS UP. CALL LIGHT WITHIN REACH.
--- NOTE | 2022-09-14 11:50 | NUR ---
PT CALL LIGHT ON. PT REQUESTS TO SHOWER. IV SALINE LOCKED AND COVERED AND PT UP TO SHOWER. PT STEADY ON FEET AND INDEPENDANT IN SHOWER. SUPPLIES PROVIDED, FRESH GOWN, PANTS AND SOCKS PROVIDED. PT DENIES ADDITIONAL REQUESTS OR COMPLANTS. CALL LIGHT WITHIN REACH.
--- NOTE | 2022-09-14 13:07 | NUR ---
PT FINISHED WITH SHOWER AND RESTING IN BED. PT DENIES PAIN AND NAUSEA AT THIS TIME. IV FLUIDS RESUMED. PT DECLINES 1300 GAS RELIEF MEDICAITON. PT DENIES ADDITIONAL REQUESTS OR COMPLAINTS. CALL LIGHT WITHIN REACH. BED RAILS UP.
--- NOTE | 2022-09-14 13:35 | NUR ---
PATIENT RESTING IN BED WITH EYES SHUT, ALLOWED TO REST. IV FLUIDS INFUSING ORDERED. PATIENT HAD SHOWER THIS AFTERNOON. CALL LIGHT WITHIN REACH, BED RAILS UP X2. VS STABLE. ALL PATIENT CARE NEEDS MET AT THIS TIME, WILL CONTINUE TO MONITOR.
[2022-09-14 14:04] VITALS: BP 104/51
[2022-09-14] MEDS ORDERED: METHYLPHENIDATE10 MG PO (14:06)
[2022-09-14] MEDS ORDERED: MODAFINIL100 MG PO (14:09)
--- NOTE | 2022-09-14 14:18 | NUR ---
PT NAUSED 5MG COMPAZINE IVP SLOWLEY GIVEN AT THIS TIME, EMINES BAG AT BEDSIDE.
--- NOTE | 2022-09-14 14:37 | NUR ---
AFTERNOON ASSESSMENT DUE. THIS RN ASSUMING CARE OF PT. RECENT 200ML EMESIS EPISODE REPORTED BY GLOBAL MARKETING MANAGER, JEMIMA. SEE MAR FOR MEDICATION GIVEN. PT RPEORTS NAUSEA AND EMESIS CAME ON SUDDENLY. PT DENIES ANY PAIN IN ABDOMEN EVEN WHILE FEELING NAUSEATED. PT DENIES PAST NAUSEA WITH ABX. PT ALERT AND ORIENTED TO ALL. HEART TONES REGULAR, LUNG SOUNDS CLEAR. PT DENIES SHORTNESS OF BREATH. ABDOMEN SOFT AND NON TENDER. BOWEL TONES ACTIVE AND PT REPORTS SHE IS PASSING GAS. MILD ABDOMINAL DISTENTION SEEN. LAPAROSCOPIC SITES X4 C/D/I WITH NO DRAINAGE PRESENT AND EDGES WELL APROXIMATED. PT DENIES ANY VAGINAL DISCHARGE OR BLEEDING. PT REPORTS NASUEA IS BEGINING TO SUBSIDE. PT DENIES NEED FOR ADDITIONAL MEDICATION. NO ADDITIONAL REQUESTS OR COMPLAINTS. CALL LIGHT WITHIN REACH. BED RAILS UP.
--- NOTE | 2022-09-14 15:23 | NUR ---
THIS RN TO ROOM TO CHECK ON PT. PT AWAKE AND OREINTED AND REPORTS NASUEA HAS "MOSTLY" RESOLVED. PT LOOKING AT MENU FOR FOOD TO ORDER. PT REQUESTS POPSICLES. IZQUIERDO ICE PROVIDED. PT DECLINES ADDITONAL NASUEA MEDICATIONS. PT CONTINUES TO DENY PAIN. NO ADDITIONAL REQUESTS OR COMPLAINTS. CALL LIGHT WITHIN REACH. BED RAILS UP.
--- NOTE | 2022-09-14 16:02 | NUR ---
PATIENT SITTING UP IN BED WITH FAMILY AT BEDSIDE. FAMILY ASKED FOR THE LAST BP. THIS NURSE LOOKED IT UP ON MONITOR AND ADVISED. PATIENT DENIES ANY CARES AT THIS TIME JUST WANTS TO RELAX AND VISIT WITH FAMILY. CALL LIGHT WITHIN REACH.
--- NOTE | 2022-09-14 16:55 | NUR ---
THIS RN TO ROOM TO CHECK ON PT. PT RESTING WITH EYES CLOSED. FAMILY AT BEDSIDE. QUSTIONS ASKED AND ASNWERED. PTS FAMILY STATES PT WILL NEED HOME MEDICATIONS. MULTIPLE MEDICATION BOTTLES (IBUPROFEN, OXYCODONE/ACTAMINOPHEN, DOUSATE) FOUND IN PTS BAG. BOTTLES PLACED IN SAFE BUT FOR METHYLPHENIDATE WHICH PT REQUESTS TO TAKE. MD CALLED AND UPDATED ON PT STATUS. ORDERS FOR METHYLPHENIDATE GIVEN, ORDERS ENTERED AND PTS HOME MEDICAITON BOTTLE SENT TO PHARMACY. PHARMACIST CALLED AND UPDATED AND WILL ENTER ORDER. NO ADDITIONAL NEW ORDERS AT THIS TIME. PT REPORTS ONGOING NAUSEA. ZOFRAN GIVEN. PT DENIES PAIN. PT LESS DIAPHORTETIC AND NOT FLUSHED AT THIS TIME. NO ADDIITONAL REQUESTS OR COMPLAINTS. CALL LIGHT WITHIN REACH. BED RAILS UP. FAMILY AT BEDSIDE.
--- NOTE | 2022-09-14 17:12 | NUR ---
medications reconciled using pharmacy records and patient interview. Patient will be taking her own methylphenidate 10mg daily at noon. Medication in [facility]. Camacho Chopra RN & C Ifeanyi Gusman counted received med at #11 tablets 09/14/22
[2022-09-14 17:29] VITALS: BP 109/63
--- NOTE | 2022-09-14 17:29 | NUR ---
PT HERE FOR FEVER AND POSSIBLE POST OP INFECTION. PT UP IN ROOM WITH STAND BY ASSIST FOR LINE AND TUBE MANAGEMENT. PT TOLREATING CLEAR LIQUID DIET POORLY WITH EMSIS X2 THIS SHIFT. PRN NAUSEA MEDICATIONS GIVEN. SHOWER THIS SHIFT. ABDOMEN REMAINS SOFT AND NON TENDER. PRN PAIN MEDICATION GIVEN X1. PT DIAPHORETIC AND FLUSHED FROM TIME TO TIME. PT REMAINS AFBRIAL SO FAR THIS SHIFT. PT DROWSY THIS SHIFT, SLEEPIGN ON AND OFF. FAMILY REPORTS PT HAS NARCALEPSY, HOME MEDICATION ORDERED. PT DELCINES MINERAL OIL AND SIMETHCONE THIS SHIFT, MD AWARE. BLOOD PRESSURE REMAINS ABOVE SBP OF 90 THIS SHIFT, IV FLUID RATE DECREASED. PT VOIDING QUANITY SUFFICIENT. PT USESE CALL LIGHT AND MAKES NEEDS KNOWN.
--- NOTE | 2022-09-14 18:15 | NUR ---
THIS RN TO ROOM TO CHECK ON PT. PT RESTING ON RIGHT SIDE WITH EYES CLOSED. RESPRATIONS EVEN AND UNLABORED. BED RAILS UP. CALL LIGHT WITHIN REACH. PT ALLOWED TO REST.
[2022-09-14 20:23] VITALS: BP 84/44
--- NOTE | 2022-09-14 20:30 | NUR ---
pt SLEEPING WHEN RN ENTERS ROOM FOR VS. AWAKENS TO VOICE. VS COMPLETE. BP 84/44. PRIMARY RN NOTIFIED. pt DENIES NEEDS FOR PO FLUIDS OFFERED. DENIES TOILETING OR OTHER NEEDS. CALL LIGHT IN REACH.
--- NOTE | 2022-09-14 20:50 | NUR ---
PT ASSESSED AND MEDICATIONS GIVEN. PT FEELING NAUSEOUS. COMPAZINE GIVEN. PT REFUSED OTHER SCHEDULED MEDICATIONS. IVF INFUSING PER ORDER. BP LOW, BUT NORMAL FOR PT ACCORDING TO DAY NURSE AND CHART NOTES. WILL CONTINUE TO MONITOR. SAFETY PRECAUTIONS MAINTAINED. CALL LIGHT WITHIN REACH.
--- NOTE | 2022-09-14 21:30 | NUR ---
ANSWERED CALL LIGHT. SBA. PATIENT WENT TO THE BATHROOM AND BACK TO BED. COLD WASH CLOTH PROVIDED. NO OTHER NEEDS AT THIS TIME.
[2022-09-15 02:25] VITALS: BP 90/49
[2022-09-15 05:27] VITALS: BP 96/48
--- NOTE | 2022-09-15 06:19 | NUR ---
PT RESTED WELL DURING THE SHIFT. PT HAD SOME NAUSEA, COMPAZINE GIVEN X2 DOSES. VSS. IVF INFUSING PER ORDER. SAFETY PRECAUTIONS MAINTAINED. CALL LIGHT WITHIN REACH. WILL CONTINUE TO MONITOR.
--- NOTE | 2022-09-15 07:00 | NUR ---
PATIENT UP TO RECLINER, EATING BF. PATIENT REPORTS NAUSEA IMPROVED. ADMINISTERED IV ZOFRAN TO DECREASE NAUSEA WITH EATING. ADMINISTERED MORNING MEDICAITONS. IV INTACT, FLUSHES WELL.
--- NOTE | 2022-09-15 08:57 | NUR ---
DR. SMITH INTO ROUND ON PATIENT. PLAN TO DISCHARGE LATER THIS EVENING. ORDER TO DRAW CBC THIS MORNING. NO OTHER NEW ORDERS AT THIS TIME.
[2022-09-15 09:38] VITALS: BP 114/68
--- NOTE | 2022-09-15 10:52 | NUR ---
PATIENT AMBULATED IN HALLS X2 LAPS. NO NAUSEA, PAIN WELL CONTROLLED. PATIENT TOLERATING SOFT FOODS, GOOD ORAL INTAKE.
--- NOTE | 2022-09-15 12:08 | NUR ---
PATIENT SITTING UP IN RECLINER, REPORTS PAIN WELL CONTROLLED. NO OTHER NEEDS AT THIS TIME.
--- NOTE | 2022-09-15 12:51 | NUR ---
PT RESTING IN BED. EXPRESSED LULY AT PROSPECT OF DISCHARGE LATER TODAY. INDICATED WAS FEELING MUCH BETTER THAN UPON ADMITTANCE. PRAYED FOR ONGOING HEALING.
[2022-09-15 13:23] VITALS: BP 111/74
--- NOTE | 2022-09-15 13:27 | NUR ---
PATIENT ASKED IF WE HAD ANY FRUIT. AND I SAID YES SO I CALLED THE KITCHEN AND ORDERED FOR HER. THEY SAID THEY WOULD BRING IT UP SOON THEY CAN. PATIENT IS WATCHING A MOVIE ON HER PHONE.
--- NOTE | 2022-09-15 15:19 | NUR ---
DR. CRUZ ROUNDED ON PATIENT, PLANS TO DISCHARGE HOME. PATIENT SL REMOVED, CATH INTACT.
[2022-09-15] MEDS ORDERED: METRONIDAZOLE500 MG PO (15:33)
[2022-09-15] MEDS ORDERED: BACTRIM DS TAB1 EACH PO (15:38)
--- NOTE | 2022-09-15 16:00 | NUR ---
Briefly spoke with pt as she remains OBS. Pt will dc today. Pt lives in [place] and denies needs. She is off following surgery until sometime in October. PT works at [employer]. She plans on staying with her mom and kids at her moms house. Mom will assist her with cook, cleaning, shopping, caring for children. Pt getting assistance with food stamps. Will dc to home shortly.
--- NOTE | 2022-09-17 19:34 | EKG ---
[facility] [address] [place], [place] [address] Signed Normal sinus rhythm Normal ECG When compared with ECG of 14-DEC-2020 16:50, No significant change was found Confirmed by KARSTEN MCQUEEN MD ([id number]) on 09/17/2022 7:34:04 PM Electronically Signed By: KARSTEN MCQUEEN 09/17/221933 PATIENT NAME: KIRAN ROSADO Electrocardiogram DATE OF : 89 PHYSICIAN: KARSTEN MCQUEEN REPORT #: [id number] REPORT IS CONFIDENTIAL AND NOT TO BE RELEASED WITHOUT AUTHORIZATION
== END 2022-09-15 16:15 | disposition home or self-care (01) ==
LOC: ED 11:20 → MS 11:21
PROVIDERS: ADMIT Obstetrics & Gynecology; ATTEND Obstetrics & Gynecology
DX: T81.40XA Infection following a procedure, unspecified, initial encounter (principal); Z88.8 Allergy status to other drugs, medicaments and biological substances; Z20.822 Contact with and (suspected) exposure to COVID-19
CPT/HCPCS: 36415; 71045; 74177; 80053; 81003; 83605; 85025; 93005; 93010; 96365; 96366; 96367; 96375; 96376; 99285 25; A9270; C9803; G0378; J0131; J0696; J0780; J2405; J7030; J7121; Q9967; U0002

== ENCOUNTER 2024-10-28 12:26 | Emergency (ER) | payer BC ==
[~2024-10-28] VITALS: Ht 162.6 cm; Wt 75.9 kg
[~2024-10-28 12:26] MED LIST changes: +BACTRIM DS TAB1 EACH PO; +METHYLPHENIDATE10 MG PO; +METRONIDAZOLE500 MG PO
[2024-10-28] MEDS ORDERED: NITROGLYCERIN 0.4 MG SUBL SL PRN (15:00)
[2024-10-28 15:09] LABS: BASOPHILS 0.8 % (0.1-1.2); EOSINOPHILS 2.6 % (0.7-5.8); LYMPHOCYTES 27.4 % (19.3-51.7); MCH 30.5 PG (25.6-32.2); MCHC 33.2 g/dL (32.2-35.5); MCV 91.8 fL (79.4-94.8); MONOCYTES 7.8 % (4.7-12.5); NEUTROPHILS 61.1 % (34.0-71.1); RBC 4.89 M/uL (3.93-5.22)
[2024-10-28 15:21] LABS: ALT (SGPT) 24 U/L (14-59); AST (SGOT) 16 U/L (15-37); GLOMERULAR FILTRATION RATE,EST 121 mL/min (>60); PROTEIN, TOTAL 9.0 g/dL (6.4-8.2); UREA NITROGEN 6 mg/dL (7-18)
[2024-10-28 16:19] VITALS: BP 104/65
--- NOTE | 2024-10-29 23:05 | EKG ---
[facility] [address] [facility] [place] [address] Signed Normal sinus rhythm Normal ECG When compared with ECG of 13-SEP-2022 11:24, No significant change was found Confirmed by Miguel Quintero MD () on 10/29/2024 11:05:02 PM Electronically Signed By: MIGUEL QUINTERO MD 10/29/[id number] PATIENT NAME: KIRAN ROSADO Electrocardiogram DATE OF : 89 PHYSICIAN: MIGUEL QUINTERO MD REPORT #: [id number] REPORT IS CONFIDENTIAL AND NOT TO BE RELEASED WITHOUT AUTHORIZATION
== END 2024-10-28 16:20 | disposition home or self-care (01) ==
LOC: ED 12:26
PROVIDERS: Emergency Medicine
DX: R07.89 Other chest pain (principal); Z88.6 Allergy status to analgesic agent; Z88.8 Allergy status to other drugs, medicaments and biological substances; Z91.018 Allergy to other foods
CPT/HCPCS: 36415; 71045; 80053; 83735; 84484; 84703; 85025; 85379; 93005; 93010; 99285-25

== ENCOUNTER 2025-01-29 11:16 | Emergency (ER) | payer BC ==
[~2025-01-29] VITALS: Ht 162.6 cm; Wt 75.2 kg
[2025-01-29] MEDS ORDERED: ONDANSETRON ODT4 MG PO (13:58)
[2025-01-29] MEDS ORDERED: AMOX TR-K CLV1 EAC1 PO (13:58)
[2025-01-29] MEDS ORDERED: PERCOCET 5-3251 EACH PO (13:58)
[2025-01-29] MEDS ORDERED: AMOXICILLIN/CLAVULANATE K 875 MG TAB PO ONE (14:00)
[2025-01-29] MEDS ORDERED: AMOXICILLIN/CLAVULANATE K 875 MG HOME.PACK PO ONE (14:00)
[2025-01-29] MEDS ORDERED: ONDANSETRON 4 MG TAB ODT SL ONE (14:00)
[2025-01-29] MEDS ORDERED: ONDANSETRON 4 MG HOME.PACK SL ONE (14:00)
[2025-01-29] MEDS ORDERED: OXYCODONE/APAP 5/325 TAB PO ONE (14:00)
[2025-01-29] MEDS ORDERED: OXYCODONE/ACETAMINOPHEN 1 TAB HOME.PACK PO ONE (14:00)
[2025-01-29 14:29] VITALS: BP 113/80
== END 2025-01-29 14:29 | disposition home or self-care (01) ==
LOC: ED 11:16
DX: K04.7 Periapical abscess without sinus (principal); K02.9 Dental caries, unspecified
CPT/HCPCS: 99282; A9270